=== PATIENT | male | born 1945 | race Caucasian/White ===

== ENCOUNTER 2023-04-02 12:04 | Outpatient (CLI) | payer MEDICARE, BC ==
[~2023-04-02 12:04] MED LIST: ADAL40PE SUBCUT; ALBU18HF2 INH; ASPI-611 PO; ATOR40TA PO; BECL7.3A INH; FLUT50DI NAS; FURO40TA4 PO; HYDR-4383 PO; LEVO50TA8 PO; LISI-642 PO; METH2.5T PO; POTA-197 PO; RANI150C4 PO; [UNRECOGNIZED DRUG - CODE] PO
[2023-04-02 12:16] LABS: BASOPHILS # (AUTO) 0.1 X10'3 (0-0.2); HEMOGLOBIN 11.4 g/dl (14.0-17.9); LYMPHOCYTES # (AUTO) 0.9 X10'3 (1.1-4.8); MEAN PLATELET VOLUME 6.9 FL (7.4-10.4); NEUTROPHILS # (AUTO) 4.3 X10'3 (1.8-7.7); WHITE BLOOD COUNT 6.6 X10'3 (4.5-11.0)
[2023-04-02 12:18] LABS: BASOPHILS % (AUTO) 2.3 % (0-1); EOSINOPHILS # (AUTO) 0.3 X10'3 (0-0.9); EOSINOPHILS % (AUTO) 5.2 % (0-6); HEMATOCRIT 36.6 % (42.0-52.0); LYMPHOCYTES % (AUTO) 13.5 % (21-51); MEAN CORPUSCULAR HEMOGLOBIN 28.8 PG (27.0-31.0); MEAN CORPUSCULAR VOLUME 92.8 FL (78-98); MONOCYTES # (AUTO) 0.8 X10'3 (0-0.9); MONOCYTES % (AUTO) 12.9 % (2-12); NEUTROPHILS % (AUTO) 66.1 % (42-75); PLATELET COUNT 376 X10'3 (140-440); RED BLOOD COUNT 3.94 X10'6 (4.70-6.10); RED CELL DISTRIBUTION WIDTH 21.9 % (11.5-14.5)
[2023-04-02 12:25] LABS: ALANINE AMINOTRANSFERASE 58 U/L (12-78); ALBUMIN 2.8 G/DL (3.4-5.0); ALBUMIN/GLOBULIN RATIO 0.8 (1.1-1.5); ALKALINE PHOSPHATASE 109 IU/L (46-116); ANION GAP 4 (8-16); ASPARTATE AMINO TRANSFERASE 31 U/L (10-37); BILIRUBIN,TOTAL 0.5 MG/DL (0.1-1.0); BLOOD UREA NITROGEN 13 MG/DL (7-18); BUN/CREATININE RATIO 13.5 (10.0-20.0); CALCIUM 8.9 MG/DL (8.5-10.1); CHLORIDE 103 MMOL/L (99-107); CREATININE 0.96 MG/DL (0.60-1.10); GLUCOSE 98 MG/DL (70-104); POTASSIUM 4.4 MMOL/L (3.5-5.1); SODIUM 140 MMOL/L (135-145); TOTAL CARBON DIOXIDE 33.2 MMOL/L (24-32); TOTAL PROTEIN 6.3 G/DL (6.4-8.2); eGFR 76 ML/MIN
[2023-04-02 12:59] LABS: ANISOCYTOSIS 3+; PLATELET ESTIMATE NORMAL
[2023-04-02 13:00] LABS: POIKILOCYTOSIS FEW; POLYCHROMASIA FEW
== END 2023-04-02 23:59 | disposition home or self-care (01) ==
LOC: LAB 12:04
PROVIDERS: ATTEND Internal Medicine
DX: A41.9 Sepsis, unspecified organism (principal)
CPT/HCPCS: 36415; 80053; 85008; 85025